=== PATIENT | male | born 1975 | race Hispanic/Latino ===

== ENCOUNTER → 2018-09-28 | Day surgery (SDC) | payer OTHER ==
[~2018-09-28] MED LIST: BUPIVACAINE HCL 0.5% INJ 30 ML VIAL INJ ONE; CEFAZOLIN SOD 1 GM/NS 50ML 50 ML IV ONE; DEXAMETHASONE SOD PHOS INJ 4 MG/ML VIAL ONE; EPINEPHRINE HCL 1:1000 1ML 1 MG/ML AMP ONE; FENTANYL CITRATE/PF 100MCG/2 ML INJ ONE; LIDOCAINE HCL 2% LOCAL INJ 5 ML SDV VIAL INJ ONE; MIDAZOLAM HCL 2 MG/2 ML VIAL ONE; MUPIROCIN 2% OINT 22 GM TUBE ONE; ONDANSETRON HCL INJ 2MG/ML 2ML 2 MG/ML VIAL ONE; PROPOFOL IV EMULSION 10 MG/ML 20 ML VIAL ONE; SEVOFLURANE INHAL SOLN 250 ML PEN BTL ONE; TYLENOL # 31 EA PO
--- NOTE | 2018-09-28 11:59 | Operative Report ---
DATE OF PROCEDURE: 09/28/2018 SURGEON: Taran Duff MD MEDICAL COLLECTOR: Eren Rogers PA-C. PREOPERATIVE DIAGNOSIS: Lateral malleolus fracture, right ankle. POSTOPERATIVE DIAGNOSIS: Lateral malleolus fracture, right ankle. PROCEDURE: Open reduction and internal fixation, right lateral malleolus. INDICATIONS: The patient is a 43-year-old gentleman, who has a right ankle fracture. The findings and options have been discussed. We plan on to open reduction with internal fixation. The risks and benefits have been explained. He states he understands and wishes to proceed. PROCEDURE IN DETAIL: The patient was brought to the operating room and placed under general anesthetic. He received prophylactic antibiotics and a regional block in the holding area. His right lower extremity was prepped and draped in a sterile manner. A preoperative time-out was performed. The extremity was exsanguinated and a proximal tourniquet was inflated to 300 mmHg. A lateral incision was made over the distal fibula. The fracture site was carefully exposed. A lobster claw reduction clamp was used to perform an anatomic reduction of the distal fibula. A 7 hole one-third semitubular plate was hand contoured to match the anatomy. This was fixed with a combination of compression and locking screws. Intraoperative x-rays confirmed an anatomic reduction and good fixation. The wound was irrigated. The incision was closed with subcuticular Vicryl and nylon stitches. A sterile bandage and a tib-fib orthosis were applied. Estimated blood loss was less than 5 mL. All needle and sponge counts were correct. Taran Duff MD DR/ZABRINA /[id number]
[2018-09-28 13:00] VITALS: BP 99/66
== END | disposition home or self-care (01) ==
LOC: OR 09:11
PROVIDERS: ATTEND Specialist
DX: S82.61XA Displaced fracture of lateral malleolus of right fibula, initial encounter for closed fracture (principal); E66.01 Morbid (severe) obesity due to excess calories; G47.33 Obstructive sleep apnea (adult) (pediatric); Z72.0 Tobacco use; X58.XXXA Exposure to other specified factors, initial encounter; Y93.89 Activity, other specified; Y92.89 Other specified places as the place of occurrence of the external cause; Y99.0 Civilian activity done for income or pay; Z01.810 Encounter for preprocedural cardiovascular examination; Z68.42 Body mass index [BMI] 45.0-49.9, adult
CPT/HCPCS: 27792; 76000; 93005; C1713 ×5; J0171; J0690; J1100; J2001; J2250; J2405; J2704; J3010